=== PATIENT | male | born 1995 | race American Indian/Alaskan Native ===

== ENCOUNTER 2019-11-05 06:59 | Day surgery (SDC) | payer OTHER ==
[2019-11-05] MEDS ORDERED: SODIUM CHLORIDE 0.9% 1000 ML 1,000 ML IV SCH (07:00)
[2019-11-05] MEDS ORDERED: LIDOCAINE MPF (2%) 20 MG/1 ML VIAL 5 ML ONE (08:00)
--- NOTE | 2019-11-05 08:08 | Anesthesia Consultation ---
Anesthesia Consult and Med Hx Date of service: 11/05/19 - Airway Anesthetic Teeth Evaluation: Good ROM Head & Neck: Adequate Mental/Hyoid Distance: Adequate Mallampati Class: Class II Intubation Access Assessment: Probably Good - Pre-Operative Health Status ASA Pre-Surgery Classification: ASA1 Proposed Anesthetic Plan: MAC - Pulmonary Hx Smoking: No Hx Asthma: No Hx Respiratory Symptoms: No SOB: No COPD: No Home Oxygen Therapy: No Hx Pneumonia: No Hx Sleep Apnea: Yes - Cardiovascular System Hx Hypertension: No Hx Coronary Artery Disease: No Hx Heart Attack/AMI: No Hx Angina: No Hx Percutaneous Transluminal Coronary Angioplasty (PTCA): No Hx Cardia Arrhythmia: No Hx Pacemaker: No Hx Internal Defibrillator: No Hx Valvular Heart Disease: No Hx Heart Murmur: No Hx Peripheral Vascular Disease: No - Central Nervous System Hx Neuromuscular Disorder: No Hx Seizures: No CVA: No Hx Back Pain: No Hx Psychiatric Problems: No - Gastrointestinal Hx Ulcer: No Hx Gastroesophageal Reflux Disease: No - Endocrine Hx Renal Disease: No Hx End Stage Renal Disease: No Hx Cirrhosis: No Hx Liver Disease: No Hx Insulin Dependent Diabetes: No Hx Non-Insulin Dependent Diabetes: No Hx Thyroid Disease: No Hx Hypothyroidism: No Hx Hyperthyroidism: No - Hematic Hx Anemia: No Hx Sickle Cell Disease: No - Other Systems Hx Alcohol Use: Yes (occ.) Hx Substance Use: No Hx Cancer: No Hx Obesity: No
--- NOTE | 2019-11-05 08:08 | Anesthesia Day of Surgery ---
Anesthesia Day of Surgery - Day of Surgery Patient Examined: Yes Patient H&P Reviewed: Yes Patient is NPO: Yes
[2019-11-05] MEDS ORDERED: propofoL 200 MG/20 ML VIAL IV ONE ×3 (08:28→08:49)
[2019-11-05] MEDS ORDERED: LIDOCAINE 2% UROJECT 10 ML JELLY ONE (08:36)
[2019-11-05] MEDS ORDERED: LIDOCAINE 2% UROJECT 10 ML JELLY UR ONE (08:49)
--- NOTE | 2019-11-05 09:11 | Operative Report ---
PROCEDURE: Colonoscopy. INDICATIONS FOR PROCEDURE: The patient is a 24-year-old -[place] gentleman who had been having hematochezia. Colonoscopy was done to make sure there was not any significant lower GI pathology present. DESCRIPTION OF PROCEDURE: The procedure was done after getting informed consent with MAC anesthesia. Initial rectal exam showed presence of some minor external hemorrhoid. Instrument was passed through the rectum onto the cecum, which was identified with ileocecal valve and the appendiceal orifice. Visualization was fair. The cecum was also visualized on the retroverted view. No additional pathology was noted. Cecum, ascending colon, transverse colon, descending colon and sigmoid showed normal mucosa. There was no endoscopic evidence of colitis, diverticular disease or polyps noted. In the rectum, on the retroverted view, it showed moderate internal hemorrhoid, which is a possible cause of the patient's hematochezia. ASSESSMENT: Hematochezia secondary to moderate internal hemorrhoid, mild to moderate external hemorrhoid and normal colon mucosa. PLAN: To do a flexible sigmoidoscopy with banding for treatment of the internal hemorrhoids. There was no bleeding associated with the colonoscopy, no complications associated with the procedure. Procedure was done in the GI lab with assistance of the GI lab team, which included ANISHA, Cora Ortiz as well as Abhijeet rodríguez and with assistance of anesthesia. JOB# [id number] NAYELI/ERINN
--- NOTE | 2019-11-05 09:15 | Operative Report ---
INDICATIONS: A 24-year-old -[place] gentleman who has been having some hematochezia. Colonoscopy showed presence of moderate internal hemorrhoids, possible cause of the hematochezia as well as some mild to moderate external hemorrhoids. Flexible sigmoidoscopy with banding was done for treatment of the internal hemorrhoids. DESCRIPTION OF PROCEDURE: The EGD scope with the banding apparatus was introduced and retroflexed and 4 of the largest hemorrhoids were then suctioned into the suction channel and band was applied. At the end of the procedure, lidocaine gel was applied into the rectal vault. However, as the EGD scope was being withdrawn, the apparatus for the banding came off and the EGD scope had to be reintroduced and the apparatus would have to be retrieved like a foreign body using a Goodson Net. Initially, a snare polypectomy snare was used, which could not be grabbed properly. Subsequently, a Goodson Net was used and with the Goodson Net, the apparatus was grabbed and retrieved. ASSESSMENT: Hematochezia secondary to internal hemorrhoids, status post banding x 4. Displacement of the banding apparatus which had to be retrieved as a foreign body by use of a Goodson Net. There was no excessive bleeding associated with the procedure. No additional complications. The patient will be discharge and will be given some tramadol if needed for pain and asked to follow up in the office in 1-2 weeks' time. Also to take some Sitz bath and Anusol-HC suppositories or suppository of choice. JOB# [id number] NAYELI/ERINN
--- NOTE | 2019-11-05 09:15 | Procedure Note ---
Date of procedure: 11/05/19 Pre-op diagnosis: Hematochezia Post-op diagnosis: other (Hematochezia secondary to Moderate Internal Hemorrhoids (s/p Banding x 4)/ Mild to Moderate External Hemorrhoids/ Normal Colon Mucosa/ Dislodged Hemorrhoidal Apparatus (retrieved as a Foreign Body with a Goodson Net)) Procedure: Colonoscopy/ Felxible Sigmoidoscopy and Banding x 4 and use of Goodson Net to retrieve the dislodged Banding Apparatus (foreign body) Anesthesia: MAC Surgeon: MURIEL GARDNER Estimated blood loss: minimal Pathology: none Condition: stable Disposition: same day (Treat with Tramadone as needed. Follow up in 1 to 2 weeks ([phone]). Sitz Bath and use Hemorrhoidal medication.)
[2019-11-05 09:40] VITALS: BP 150/95
--- NOTE | 2019-11-05 11:23 | Post Anesthesia Evaluation ---
- Post Anesthesia Evaluation Patient Participated: Yes Airway Patent: Yes Stable Respiratory Function: Yes Nausea/Vomiting: No Temp > 96.8F: Yes Pain Manageable: Yes Adequeate Hydration: Yes Anesthesia Complications: No
== END 2019-11-05 07:00 | disposition home or self-care (01) ==
LOC: GIO 06:59
DX: K92.1 Melena (principal); K64.8 Other hemorrhoids; G47.30 Sleep apnea, unspecified; Z72.89 Other problems related to lifestyle; Z79.899 Other long term (current) drug therapy
CPT/HCPCS: 45378; 46221; J2704; J7030